=== PATIENT | female | born 1960 | race Caucasian/White ===

== ENCOUNTER → 2016-12-27 | Outpatient (CLI) | payer OTHER ==
[~2016-12-27] VITALS: Ht 157.5 cm; Wt 58.7 kg
[~2016-12-27] MED LIST: CENTCHW4 PO; CHLORHEXIDINE GLUCONATE 2 % 1 PACK (2 CLOTHS) TOPICAL PRN; INSULIN HUMAN REGULAR 1,000 UNITS/10 ML VIAL SQ PRN; LACTATED RINGER'S 1000 ML IV PRN; METOPROLOL TARTRATE 25 MG TAB PO PRN; POVIDONE IODINE 5% (ANTISEPSIS KIT) 4 APPLICATIONS EACH NARE PRN; PROPOFOL 200 MG/20 ML AMP IV ONE; SODIUM CHLORID 0.9% 500 ML IV PRN
--- NOTE | 2016-12-27 11:42 | GIPROC ---
[facility] [address] [facility]. [facility] [place], [address] COLONOSCOPY PROCEDURE REPORT EXAM DATE: 12/27/2016 PATIENT NAME: Rebeca Mills MR #: [id number] BIRTHDATE: 1960 ENDOSCOPIST: Donato Perez MD ORDER #: [id number] STAND IN: Acosta Silva and Shelby Gonzales STATUS: outpatient INDICATIONS: The patient is a 56 yr old female here for a colonoscopy due to Screening; average risk. PROCEDURE PERFORMED: colonosocpy/polypectomy MEDICATIONS: Per Anesthesia. PREP QUALITY: fair ESTIMATED BLOOD LOSS None CONSENT: The patient understands the risks and benefits of the procedure and understands that these risks include, but are not limited to: sedation, allergic reaction, infection, perforation and/or bleeding. Alternative means of evaluation and treatment include, among others: physical exam, x-rays, and/or surgical intervention. The patient elects to proceed with this endoscopic procedure. medical equipment was checked for proper function. Hand hygiene and appropriate measures for infection prevention was taken. After the risks, benefits and alternatives of the procedure were thoroughly explained, Informed consent was verified, confirmed and timeout was successfully executed by the treatment team. A digital exam was performed: prominent skin tissue/tags were noted; no anal or rectal lesions palpable. The Pentax [id number] endoscope was introduced through the anus and advanced to the cecum, which was identified by both the appendix and ileocecal valve. The instrument was then slowly withdrawn as the colon was fully examined. COLON FINDINGS: A polypoid shaped sessile polyp measuring 15 cm in size was found in the proximal transverse colon. A polypectomy was performed using snare cautery. The resection was complete and the polyp tissue was completely retrieved. A polypoid shaped pedunculated polyp measuring 9 mm in size was found in the rectum. A polypectomy was performed using snare cautery. The resection was complete and the polyp tissue was completely retrieved. Retroflexed views revealed no abnormalities The scope was then completely withdrawn from the patient and the procedure terminated. PROCEDURE WITHDRAWAL TIME:17minutes ADVERSE EVENTS: There were no complications. IMPRESSIONS: 1. A sessile polyp measuring 15 cm in size was found in the proximal transverse colon; polypectomy was performed using snare cautery 2. A pedunculated polyp was found in the rectum; polypectomy was performed using snare cautery 3. Retroflexed views revealed no abnormalities 4. Was performed RECOMMENDATIONS: Await biopsy results. Biopsy results will not be ready for 7-10 days. If you don't hear from us in two weeks, call our office for results. RECALL: Donato Perez MD eSigned: Donato Perez MD 12/27/2016 11:41 AM cc: Danilo Chinchilla M.D. PATIENT NAME: Rebeca Mills MR#: [id number]
[2016-12-27 11:50] VITALS: BP 130/61; PULSE 64; RESP 16; O2SAT 99
--- NOTE | 2016-12-27 20:39 | EKG ---
Date Performed: 12/27/2016 Time Performed: 08:51:07 PTAGE: 56 years EKG: Sinus rhythm WITH SHORT MO INTERVAL BORDERLINE ECG NO PREVIOUS TRACING DOCTOR: Walter Case Interpretating Date/Time 12/27/2016 20:38:02
== END ==
LOC: HEND 08:28
PROVIDERS: ATTEND Internal Medicine Gastroenterology
DX: Z12.11 Encounter for screening for malignant neoplasm of colon (principal); Z01.810 Encounter for preprocedural cardiovascular examination; D12.3 Benign neoplasm of transverse colon; D12.8 Benign neoplasm of rectum
CPT/HCPCS: 88305; 93005